=== PATIENT | female | born 1985 | race Caucasian/White ===

== ENCOUNTER 2017-04-20 16:20 | Emergency (ER) | payer OTHER ==
--- NOTE | 2017-04-20 16:56 | EDPHY ---
H & P Stated Complaint: left calf pain and swelling x 2 weeks worse today,no trauma Time Seen by Provider: 04/20/17 16:52 HPI/ROS: CHIEF COMPLAINT: Left calf pain and swelling HISTORY OF PRESENT ILLNESS: The patient presents to the ED with a 2 month history of mild intermittent left calf pain and swelling. The patient states her symptoms became acutely worse today while working. She denies associated numbness or weakness. She also denies symptoms of chest pain or shortness of breath. The patient states that she has no prior history of PE or DVT. The patient denies any history of cancer or hypercoagulable state. The patient states that her symptoms are minimal in nature. REVIEW OF SYSTEMS: A comprehensive 10 point review of systems is otherwise negative aside from elements mentioned in the history of present illness. Source: Patient - Personal History LMP (Females 10-55): 22-28 Days Ago Current Tetanus/Diphtheria Vaccine: Unsure Current Tetanus Diphtheria and Acellular Pertussis (TDAP): Unsure - Medical/Surgical History Hx Asthma: No Hx Chronic Respiratory Disease: No Hx Diabetes: No Hx Cardiac Disease: No Hx Renal Disease: No Hx Cirrhosis: No Hx Alcoholism: No Hx HIV/AIDS: No Hx Splenectomy or Spleen Trauma: No Other PMH: 01/28-*please keep CONFIDENTIAL per pt request* - Social History Smoking Status: Current some day smoker - Physical Exam Exam: General Appearance: Alert, no distress Respiratory: There are no retractions, lungs are clear to auscultation Cardiovascular: Regular rate and rhythm Gastrointestinal: Abdomen is soft and nontender, no masses, bowel sounds normal Neurological: A&O, normal motor function, normal sensory exam, normal cranial nerves Skin: Warm and dry, no rashes Musculoskeletal: Neck is supple nontender Extremities: Mild tenderness to palpation left calf Constitutional: Initial Vital Signs Temperature (C) 36.7 C 04/20/17 16:32 Heart Rate 67 04/20/17 16:32 Respiratory Rate 16 04/20/17 16:32 Blood Pressure 110/83 H 04/20/17 16:32 O2 Sat (%) 98 04/20/17 16:32 O2 Delivery Mode Room Air Allergies/Adverse Reactions: No Known Allergies Allergy (Unverified 04/20/17 16:31) Home Medications: Medication Instructions Recorded Adderall 10 MG (*) 04/20/17 Medical Decision Making Differential Diagnosis: Differential diagnosis considered includes DVT, ruptures Barboza cyst, arterial insufficiency, myofascial strain Departure - Departure Disposition: Home, Routine, Self-Care Clinical Impression: Pain of left calf Condition: Good Instructions: Musculoskeletal Pain (ED) Additional Instructions: 1. Take Ibuprofen or Motrin 600 mg by mouth three times a day. 2. Your ultrasound today demonstrates no evidence of a blood clot or other significant finding. I do recommend repeating the study in 2 weeks if you continue to have any persistent symptoms. Referrals: Farzana Goldberg PA [Primary Care Provider] - As per Instructions
[2017-04-20 17:47] VITALS: BP 120/66; PULSE 90; RESP 18; TEMP 98.4; O2SAT 94
== END 2017-04-20 17:47 | disposition home or self-care (01) ==
DX: M79.662 Pain in left lower leg (principal); F17.200 Nicotine dependence, unspecified, uncomplicated

== ENCOUNTER → 2019-01-10 | Outpatient (CLI) | payer OTHER | LOC: FIMAGING 14:51 | PROVIDERS: ATTEND Physician Assistant | DX: N83.209 Unspecified ovarian cyst, unspecified side (principal); D25.9 Leiomyoma of uterus, unspecified ==

== ENCOUNTER → 2019-01-18 | Outpatient (CLI) | payer OTHER ==
[~2019-01-18] MED LIST: GADOBUTROL 10 ML VIAL IVP ONE
== END ==
LOC: FIMAGING 12:33
PROVIDERS: ATTEND Physician Assistant
DX: N83.9 Noninflammatory disorder of ovary, fallopian tube and broad ligament, unspecified (principal)
CPT/HCPCS: A9585

== ENCOUNTER → 2019-02-28 | Outpatient (CLI) | payer OTHER | LOC: FIMAGING 14:37 | PROVIDERS: ATTEND Neurological Surgery | DX: M51.26 Other intervertebral disc displacement, lumbar region (principal); M51.37 Other intervertebral disc degeneration, lumbosacral region ==